=== PATIENT | male | born 1985 | race Caucasian/White ===

== ENCOUNTER 2022-07-11 19:29 | Emergency (ER) | payer OTHER, SELFPAY ==
[2022-07-11 19:39] VITALS: BP 121/78; PULSE 62; RESP 16; TEMP 36.6; O2SAT 95; BMI 27.0
--- NOTE | 2022-07-11 20:02 | CRLHL7_ITS ---
For Patients: As a result of the Century Cures Act, medical imaging exams and procedure reports are released immediately into your electronic medical record. You may view this report before your referring provider. If you have questions, please contact your health care provider. HISTORY: Twisted foot and ankle. Known fracture of the base of the 5th metatarsal. COMPARISON: Foot x-ray 07/11/2022 FINDINGS: Three views of the left ankle. No evidence for acute fracture or dislocation. The ankle mortise appears intact. Chronic changes are noted at the distal tibia and fibula. Mild soft tissue swelling. Dictated by Deisy Murphy MD @ 07/11/2022 8:29:58 PM (Electronically Signed)
--- NOTE | 2022-07-11 20:02 | CRLHL7_ITS ---
For Patients: As a result of the Cures Act, medical imaging exams and procedure reports are released immediately into your electronic medical record. You may view this report before your referring provider. If you have questions, please contact your health care provider. HISTORY: Twisted foot and ankle. COMPARISON: None. FINDINGS: Three views of the left foot. Acute nondisplaced fracture of the base of the 5th metatarsal. Soft tissues within normal. Dictated by Deisy Murphy MD @ 07/11/2022 8:27:39 PM (Electronically Signed)
--- NOTE | 2022-07-11 20:04 | ED_ITS ---
HPI - Extremity Injury (Lower) General Date Seen: 07/11/22 Chief Complaint: Extremity Pain/Injury, Lower Stated Complaint: ANKLE INJURY - ROLLED IT Time Seen by Provider: 07/11/22 19:43 Source: patient Mode of arrival: ambulatory Limitations: no limitations History of Present Illness HPI Narrative: Patient is a 37-year-old gentleman who presents here with left ankle pain. III o'clock this afternoon he rolled his left ankle, complains of pain over the lateral part but also the medial part of his ankle. He notes that he has been using crutches it is not that is wound, has not iced it, but has kept it up. He has a history of previous ankle injuries to this ankle. But no previous history of surgeries. He presents to the emergency room for an assessment. MD complaint: ankle injury Onset (ago): hour(s) Injury: Left: ankle and foot Type of Injury: inversion Place: home Severity: mild Relieving factors: nothing Exacerbating factors: nothing Context: walking Associated symptoms: snap/pop sensation, able to partially bear weight and ambulatory Other symptoms: none Related Data Home Medications Medication Instructions Recorded Confirmed No Known Home Medications 07/11/22 07/11/22 Allergies Allergy/AdvReac Type Severity Reaction Status Date / Time No Known Drug Allergies Allergy Verified 07/11/22 19:41 Review of Systems Status of ROS: Reports: 6 or more systems reviewed and unremarkable except as noted in History and below PFSH PFS Social History Smoking Status: Current every day smoker What tobacco products do you use: cigarettes Smoking packs per day: 1 Smoking cigarettes per day: 20.0 Do you use any of these nicotine containing products: None How often do you have a drink containing alcohol: monthly or less How often do you have six or more drinks on one occasion: Never AUDIT-C Alcohol total score: 1 Non-prescribed substance use: marijuana (any form) Exam Narrative: Exam Narrative: Patient is a very nice 37-year-old gentleman who is laying in room 5. Examination of his left ankle really shows is normal dorsiflexion and plantar flexion of his foot. Does grimace slightly with this, tender over the anterior Talo fib ligament, Gonzalez test is negative, good pulses are noted in his left foot. Both dorsalis pedis and posterior tibial. Compression of the forefoot reproduces some mild discomfort, also. Forced inversion reproduces his discomfort. No evidence of any neurologic compromise, sensation is normal. Cap refills normal, Const: Vital Signs, click to edit/add: Vital Signs - 24 hr 07/11/22 19:39 Temperature 97.9 F Pulse Rate [Left P ulse Oximeter] 62 Respiratory Rate 16 Blood Pressure [Le ft Upper Arm] 121/78 Pulse Oximetry 95 Oxygen Delivery Me thod Room Air Documenting provider has reviewed patient's vital signs: yes Course Course Hospital Course: I discussed with the patient that he has an acute fracture of his 5th metatarsal, he was skateboarding when this occurred. 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 I would suggest he follow up with Orthopedics or [facility]. Given him referrals for those. Tylenol ibuprofen for the pain elevation and ice is also recommended and I would be nonweightbearing with the crutches for the 1st 3-4 days. He likely will need the boot for the next 4 weeks. Vital Signs Vital signs: Initial Vital Signs Temperature 97.9 F 07/11/22 19:39 Temperature Source Temporal Artery Scan 07/11/22 19:39 Pulse Rate 62 07/11/22 19:39 Pulse Rhythm 07/11/22 19:39 Respiratory Rate 16 07/11/22 19:39 Blood Pressure 121/78 07/11/22 19:39 Blood Pressure Mean 92 07/11/22 19:39 Blood Pressure Position Sitting 07/11/22 19:39 Pulse Oximetry 95 07/11/22 19:39 Oxygen Delivery Method 07/11/22 19:39 Vital Signs Temperature 97.9 F 07/11/22 19:39 Pulse Rate 62 07/11/22 19:39 Respiratory Rate 16 07/11/22 19:39 Blood Pressure 121/78 07/11/22 19:39 Pulse Oximetry 95 07/11/22 19:39 Oxygen Delivery Method 07/11/22 19:39 Temperature 97.9 F 07/11/22 19:39 Pulse Rate 62 07/11/22 19:39 Respiratory Rate 16 07/11/22 19:39 Blood Pressure 121/78 07/11/22 19:39 Pulse Oximetry 95 07/11/22 19:39 Oxygen Delivery Method 07/11/22 19:39 MDM - Extremity Injury (Lower) MDM Narrative Medical decision making narrative: As he is struggling to bear weight, we will go ahead and get x-rays of his foot and ankle. Differential Diagnosis Differential diagnosis: Likely ankle sprain and strain, acute internal derangement of knee, puncture wound of foot, fracture of toe and ankle fracture Medical Records Attestation: I reviewed the patient's medical records. Imaging Data Foot x-ray: Attestation: I have reviewed the pertinent imaging results. My impression: Acute nondisplaced fracture of the non articular surface of the base of the 5th metatarsal. X-rays of ankle shows some old issues involving around the medial malleolus, but nothing acute. Radiologist's impression: Patient: JAVIER MCKEON Facility:?[facility] Patient ID:?[id number] Site Patient ID:?[id number]. Site :?[id number] Study:?XRay Extremity Left Foot 3 views-07/11/2022 8:21:08 PM Ordering Physician:Masha Martell Final Report: HISTORY: Twisted foot and ankle. COMPARISON: None. FINDINGS: Three views of the left foot. Acute nondisplaced fracture of the base of the 5th metatarsal. Soft tissues within normal. Dictated by Deisy Murphy MD @ 07/11/2022 8:27:39 PM (Electronic Signature) Patient: JAVIER MCKEON Facility:?[facility] Patient ID:?[id number] Site Patient ID:?[id number]. Site :?1985 Study:?XRay Extremity Left Ankle 3 views-07/11/2022 8:22:00 PM Ordering Physician:Masha Martell Final Report: HISTORY: Twisted foot and ankle. Known fracture of the base of the 5th metatarsal. COMPARISON: Foot x-ray 07/11/2022 FINDINGS: Three views of the left ankle. No evidence for acute fracture or dislocation. The ankle mortise appears intact. Chronic changes are noted at the distal tibia and fibula. Mild soft tissue swelling. Dictated by Deisy Murphy MD @ 07/11/2022 8:29:58 PM (Electronic Signature) Discharge Plan Discharge Clinical Impression: Closed fracture of fifth metatarsal bone of left foot Patient Disposition: Home, Self-Care Condition: Stable Instructions: Foot Fracture in Adults (ED) Additional Instructions: Home, rest no weight-bearing for 3-4 days, after that you can use weight-bearing as needed. please continue to wear your cam walker boot always period only comes off to shower. Tylenol ibuprofen for pain, 8th suggest following up with either Sports Medicine or Orthopedics. Prescriptions: No Action No Known Home Medications Follow Up/Referrals: Raul Floyd MD [Staff Physician] - Vivek Su MD [Staff Physician] - Provider,Not a Local [Primary Care Provider] - Stand Alone Forms: [employer] Info Instructions
== END 2022-07-11 21:09 | disposition home or self-care (01) ==
PROVIDERS: Emergency Provider Family Medicine
DX: S92.505A Nondisplaced unspecified fracture of left lesser toe(s), initial encounter for closed fracture (principal); Y93.51 Activity, roller skating (inline) and skateboarding
CPT/HCPCS: 73610; 73630; 99283; 99284

== ENCOUNTER 2023-09-14 12:44 | Emergency (ER) | payer OTHER, SELFPAY ==
[2023-09-14] VITALS (28 sets, daily range): BP systolic 102–142; BP diastolic 62–91; PULSE 51–67; RESP 16; TEMP 36.8; O2SAT 96–100; BMI 28.9
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
--- NOTE | 2023-09-14 12:59 | ED.NURSE ---
C-collar applied to pt in triage room.
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
[2023-09-14] MEDS: OXYCODONE 5 MG TABLET PO (16:33)
--- NOTE | 2023-09-14 16:39 | ED.NURSE ---
pt discharged by private vehicle with instruction to head to [facility]. pt was given transfer packet to take with. pt was vitally stable and in C collar at time of discharge.
== END 2023-09-14 16:41 | disposition other institution (70) ==
PROVIDERS: Emergency Provider Emergency Medicine
DX: S12.500A Unspecified displaced fracture of sixth cervical vertebra, initial encounter for closed fracture (principal); V43.52XA Car driver injured in collision with other type car in traffic accident, initial encounter; W22.11XA Striking against or struck by driver side automobile airbag, initial encounter
CPT/HCPCS: 72125; 93005; 99284; 99285; A9270

== ENCOUNTER 2025-08-02 11:31 | Day surgery (SDC) | payer BC, SELFPAY ==
[2025-08-02] VITALS (13 sets, daily range): BP systolic 122–154; BP diastolic 55–104; PULSE 48–67; RESP 14–20; TEMP 36.2–37.2; O2SAT 92–99; BMI 30.1
--- NOTE | 2025-08-02 11:15 | CRLHL7_ITS ---
For Patients: As a result of the Century Cures Act, medical imaging exams and procedure reports are released immediately into your electronic medical record. You may view this report before your referring provider. If you have questions, please contact your health care provider. INDICATION: Right distal radius ORIF. TECHNIQUE: Intraoperative fluoroscopy. 52.3 seconds fluoro time. 2 images. COMPARISON: Right wrist radiographs 08/02/2025. FINDINGS/IMPRESSION: Fluoroscopic spot images obtained during ORIF of a right distal radius fracture. Please refer to the operative report for additional details. Dictated by Gerda Cole MD @ 08/05/2025 3:37:27 AM (Electronically Signed)
[2025-08-02] MEDS: SODIUM CHLORIDE 0.9 % (FLUSH) 10 ML SYRINGE IVF (11:50)
[2025-08-02] MEDS: LACTATED RINGERS 1000 ML 1,000 ML 100 ML IV ×2 (11:51→15:55)
--- NOTE | 2025-08-02 12:04 | P.ORCN_ITS ---
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 Pre occurred after he fell from a skateboard and landed on his outstretched right hand. Following the injury he was seen at an emergency department where x-rays revealed a displaced distal radius fracture. He was placed into a splint, however, no closed reduction was performed. Today, he continues to experience right wrist pain. He has been taking ibuprofen as needed for pain control. He was initially taking oxycodone but ran out of that prescription. In addition to pain, he is experiencing some numbness in his small finger. [facility] Medical History (Updated 08/02/25 @ 12:12 by David Jennings MD) History of pericarditis ?Z86.79 - Personal history of other diseases of the circulatory system (ICD- 10) Generalized anxiety disorder ?F41.1 - Generalized anxiety disorder (ICD-10) Major depressive disorder, recurrent, severe without psychotic features ?F33.2 - Major depressive disorder, recurrent severe without psychotic features (ICD-10) Tobacco dependence ?F17.200 - Nicotine dependence, unspecified, uncomplicated (ICD-10) Overweight ?E66.3 - Overweight (ICD-10) Surgical History (Updated 08/02/25 @ 08:11 by Margarita Flores ~ ADMISSION SPECIALIST, ADMISSION SPECIALIST) H/O wisdom tooth extraction ?K08.409 - Partial loss of teeth, unspecified cause, unspecified class (ICD- 10) History of rhinoplasty ?Z98.890 - Other specified postprocedural states (ICD-10) Social History What is your current living situation?: I presently have a place to live Smoking Status: Former smoker What tobacco products do you use: cigarettes Smoking quit date/years: <= 15 years ago Do you use any of these nicotine containing products: None How often do you have a drink containing alcohol: monthly or less How often do you have six or more drinks on one occasion: Never AUDIT-C Alcohol total score: 1 Non-prescribed substance use: marijuana (any form) Non-prescribed substance use details: Last smoked marijuana evening of 08/01/2025 Meds Home Medications and Allergies Home Medications ?Medication ?Instructions ?Recorded ?Confirmed ?Type fluoxetine 40 mg capsule 40 mg PO DAILY 09/14/2307/24 History cephalexin 250 mg capsule 250 mg PO BID 08/02/2508/02 History Allergies Allergy/AdvReac Type Severity Reaction Status Date / Time No Known Drug Allergies Allergy Verified 08/02/25 10:30 Ortho Exam Narrative Exam Narrative: General: Patient is alert in no apparent distress. Musculoskeletal: Right upper extremity was examined in the splint. Moderate diffuse soft tissue swelling of the hand and fingers. There was intact but decreased sensation to the small finger and ulnar aspect of the hand. Normal sensation in the median and radial nerve distributions. Patient was able to flex and extend his thumb and fingers. It was a weakly able to abduct his index finger but states this was limited by pain. Fingers were all warm and well perfused with good capillary refill. Const Vital Signs, click to edit/add: Vital Signs - 24 hr 08/02/25 11:48 Temperature 97.9 F Pulse Rate 48 L Respiratory Rate 20 Blood Pressure 137/86 Pulse Oximetry 96 Results Diagnostic results Wrist/Hand x-ray: image reviewed Additional Comments: AP, lateral, and oblique x-rays of the right wrist performed earlier today were reviewed. These demonstrated a comminuted, displaced, extra-articular, distal radius fracture that was mildly shortened and displaced dorsally approximately 1.5 cm. Assessment and Plan Assessment and plan (1) Traumatic closed displaced fracture of distal end of right radius: Status: Acute Plan Patient has significantly displaced extra-articular right distal radius fracture. Due to the amount of displacement, recommendations made for urgent treatment consisting of right distal radius open reduction internal fixation. Details of procedure were discussed with patient. Risks of surgery to include but not limited to infection, neurovascular injury, malunion, nonunion, hardware complications, wrist stiffness, risks of anesthesia were also discussed with patient today. After discussion, patient agreed with plan for surgery today and informed consent was obtained. He has been NPO since midnight in anticipation for possible surgery today.
--- NOTE | 2025-08-02 12:15 | P.ORPRC_ITS ---
Procedure Note Date of procedure: 08/02/25 Procedure: PREOPERATIVE DIAGNOSES: 1. Right distal radius fracture - displaced, comminuted, extra-articular POSTOPERATIVE DIAGNOSES: 1. Right distal radius fracture - displaced, comminuted, extra-articular PROCEDURE: 1. Right distal radius open reduction with internal fixation of extra-articular fracture 2. 72852 - intraoperative fluoroscopy up to 1 hour SURGEON: Real Jennings MD PRETZEL TWISTING MACHINE OPERATOR: Lalita Madrid P.A.-C. - An patient support assistant was critical for this case to aid in patient positioning, limb manipulation, tissue retraction, wound closure, and splint application. ANESTHESIA: General IMPLANTS: [employer] DVR Crosslock distal radius locking plate with 2.7 mm fully-threaded locking pegs, 2.2 mm smooth locking pegs, and 2.7 mm nonlocking screws. TOURNIQUET: 126 minutes at 250 mmHg INDICATIONS: The patient is a pleasant, 40 year male who sustained a right wrist injury after a fall 5 days ago. He was initially seen at an emergency department in [place] were a splint was applied but no attempt at closed reduction was performed. Patient presented to our outpatient clinic earlier today was noted to have a significantly displaced distal radius fracture. Due to the amount of displacement, recommendation was made for urgent surgical intervention consisting of right distal radius open reduction internal fixation to realign and stabilize the fracture. Prior to surgery, the risks and benefits of the procedure were discussed with patient, all questions were answered, and informed consent was obtained. FINDINGS: Closed, comminuted, displaced, extra-articular distal radius fracture. PROCEDURE: Patient was seen preoperatively and operative site was marked. The patient was then brought to the operating room and placed supine on the operating table. Induction of anesthesia was achieved and patient was provided with IV Ancef preoperatively for prophylaxis. The operative extremity was prepped and draped in usual sterile fashion. A surgical time-out was performed confirming patient identity, surgical site, and surgical procedure. The operative extremity was exsanguinated and the tourniquet inflated to 250 mmHg. A longitudinal incision was made overlying the FCR tendon. Sharp incision through skin and subcutaneous tissue allowed identification of the FCR tendon. The superficial sheath of the FCR tendon was sharply divided, the tendon retracted ulnarly, and the deep fascial sheath also released. The flexor pollicis longus was retracted ulnarly and the pronator quadratus identified. Pronator quadratus was sharply released along its radial and distal borders, subperiosteally elevated, and retracted ulnarly. The brachioradialis was released with insertion on the radial styloid. The fracture was encountered and cleared of interposed periosteum and fracture hematoma. A reduction was performed, but the fracture remained unstable. Therefore, a K-wire was placed percutaneously through the radial styloid in a retrograde fashion across the fracture for temporary stabilization. Even with this temporary fixation, the fracture remained slightly dorsally angulated. At this point the appropriate distal radius plate was selected and fixed provisionally with 2 K-wires. Fluoro scopic imaging in the AP and lateral planes was performed confirming correct position of the plate. The fracture was extra-articular but was very distal severe was little margin for air in the distal placement of the plate. Once plate was in appropriate position, distal screw holes were filled with a combination of 2.7 mm fully-threaded locking pegs and 2.2 mm smooth locking pegs. Multiple fluoroscopic images were obtained to confirm that these screws were of the appropriate length and located in the subchondral bone of the distal radius. One of the locking pegs was located very close to the articular surface, so it was subsequently removed. After the plate was fixed distally, the K-wires were removed from the plate. The radial styloid K-wire was also removed. The plate was then used to further restore volar tilt by fixing the plate to the radial shaft with a bicortical nonlocking screw. Once near anatomic reduction was confirmed, the plate was further fixed with an additional bicortical nonlocking screw proximally and 2 proximal 2.7 mm locking screws. Final fluoroscopic imaging confirmed satisfactory reduction of the distal radius fracture, correct position of the plate and screws. At this stage, the wound was thoroughly irrigated with normal saline. The pronator quadratus was closed over the plate with 2-0 Vicryl [id number] interrupted sutures. The tourniquet was released. Total tourniquet time was 125 minutes. Hemostasis was achieved with electrocautery. Wound was again irrigated with normal saline. Skin closure was performed with 3-0 Vicryl subcutaneous inverted interrupted stitches followed by 3-0 nylon simple interrupted sutures.. Sterile dressings were applied followed by the application of a dorsal volar short-arm splint. The patient was awoken from anesthesia and transferred to PACU in stable condition. PLAN: 1. Elevate operative extremity. 2. Ice, acetaminophen or ibuprofen PRN. 3. Oxycodone as needed for more severe pain 4. Follow up in Orthopedic Clinic in 10-14 days for wound check and splint removal.
[2025-08-02] MEDS: [UNRECOGNIZED DRUG - OTHER] INJECTION (12:42)
--- NOTE | 2025-08-02 15:30 | P.ANES_ITS ---
Anesthesia Charges Start Date/Time Anesthesia Start Date: 08/02/25 Anesthesia Start Time: 12:06 Stop Date/Time Anesthesia Stop Date: 08/02/25 Anesthesia Stop Time: 15:30 Coding CPT Codes CPT Codes: ANESTH LOWER ARM SURGERY - 78404 ([id number]) P2 - PATIENT W/MILD SYST DISEASE, QK - TRACTOR TRAILER TRUCK DRIVER 2-4 CNCRNT ANES PROC, QX - DOUGHNUT MACHINE OPERATOR HELPER SVC W/ MD MED DIRECTION
--- NOTE | 2025-08-02 15:30 | W.ANESCHARGE ---
Anesthesia Charges Start Date/Time Anesthesia Start Date: 08/02/25 Anesthesia Start Time: 12:06 Stop Date/Time Anesthesia Stop Date: 08/02/25 Anesthesia Stop Time: 15:30 Coding CPT Codes CPT Codes: ANESTH LOWER ARM SURGERY - 33400 ([id number]) P2 - PATIENT W/MILD SYST DISEASE, QK - HAND CANDY CUTTER 2-4 CNCRNT ANES PROC, QX - MERCHANDISING EXECUTION ASSOCIATE SVC W/ MD MED DIRECTION
--- NOTE | 2025-08-02 15:44 | P.ANES_ITS ---
Anesthesia Charges Start Date/Time Anesthesia Start Date: 08/02/25 Anesthesia Start Time: 12:06 Stop Date/Time Anesthesia Stop Date: 08/02/25 Anesthesia Stop Time: 15:30 Coding CPT Codes CPT Codes: ANESTH LOWER ARM SURGERY - 34860 ([id number]) P2 - PATIENT W/MILD SYST DISEASE, QK - BANK OPERATIONS OFFICER 2-4 CNCRNT ANES PROC, QX - HOME MANAGEMENT SUPERVISOR SVC W/ MD MED DIRECTION
--- NOTE | 2025-08-02 15:44 | W.ANESCHARGE ---
Anesthesia Charges Start Date/Time Anesthesia Start Date: 08/02/25 Anesthesia Start Time: 12:06 Stop Date/Time Anesthesia Stop Date: 08/02/25 Anesthesia Stop Time: 15:30 Coding CPT Codes CPT Codes: ANESTH LOWER ARM SURGERY - 23786 ([id number]) P2 - PATIENT W/MILD SYST DISEASE, QK - MAINSPRING FABRICATION SUPERVISOR 2-4 CNCRNT ANES PROC, QX - PRODUCT MANAGER FINANCIAL SERVICES SVC W/ MD MED DIRECTION
[2025-08-02] MEDS: OxyCODONE/APAP 5-325 TABLET PO ×2 (16:22→17:06)
--- NOTE | 2025-08-02 17:23 | SUR.PHASEII ---
1645: Patient ambulatory to restroom. Voided. Returned to recliner. Declined pillow under arm and ice pack.
--- NOTE | 2025-08-02 17:24 | SUR.PHASEII ---
1700: Spouse, Margarita, in room. Discharge instructions reviewed. Patient given option to stay and allow more time for Percocet to work. Patient declined and stated he was ready to go home. Patient unable to describe pain, stated I don't know.
== END 2025-08-02 17:17 | disposition home or self-care (01) ==
PROVIDERS: PCP Family Medicine; Visit Provider Orthopaedic Surgery
PROC: (CPT 25575; principal; 2025-08-02 11:15)
DX: S52.551A Other extraarticular fracture of lower end of right radius, initial encounter for closed fracture (principal)
CPT/HCPCS: 25607; 01830; 73110; 76000; A9270; C1713; J0330; J0690; J1100; J1171; J2405; J2704; J3010; J3475; J3490; J7120